=== PATIENT | male | born 1935 | race Hispanic/Latino ===

== ENCOUNTER 2018-11-15 13:54 | Observation (INO) | payer MEDICARE ==
[~2018-11-15] VITALS: Ht 170.2 cm; Wt 96.8 kg
[~2018-11-15 13:54] MED LIST: ATENOLOL25 MG PO; ATORVASTATIN CA40 MG PO; CLONAZEPAM1 MG PO; CYMBALTA60 MG PO; DONEPEZIL HCL5 MG PO; LEVAQUIN500 MG PO; LEVOTHYROXINE25 MCG PO; METRONIDAZOLE500 MG PO; OMEPRAZOLE40 MG PO; QUETIAPINE FUM100 MG PO
--- OUTSIDE RECORDS SUMMARY | 2018-11-15 13:58 | XMS REPORT ---
Author Author [facility] Address Unknown Phone Unavailable Care Team Providers Care Bisque Brusher Name Role Phone LOSALEIDA Odell AREVALO Unavailable Unavailable Magnolia GOMEZ Unavailable Unavailable Problems This patient has no known problems. Allergies, Adverse Reactions, Alerts This patient has no known allergies or adverse reactions. Medications This patient has no known medications. Results Test Description Test Time Test Comments Text Results Atomic Results Result Comments CHEST 2 VIEWS [place] [address] Patient Name: RYAN LANCASTER MR #: [id number] : 1935 Age/Sex: 81/M Req #: [id number] Adm Physician: Ordered by: SARY ELLIS Report #: [id number] Location: ER Room/Bed: Procedure: [id number] DX/CHEST 2 VIEWS Exam Date: 08/08/17 Exam Time: 1440 REPORT STATUS: Signed PROCEDURE: Frontal and lateral views of the chest. COMPARISON: [facility], CT, CT CHEST W, 07/19/2017, 19:15. INDICATIONS: DIZZY, HEADACHE, EAR PAIN FINDINGS: Lines/tubes: Unchanged left upper chest 2 -lead cardiac device Lungs: The lungs are well inflated and clear. There is no evidence of pneumonia or pulmonary edema. Pleura: There is no pleural effusion or pneumothorax. Heart and mediastinum: Borderline enlarged heart. Pulmonary vasculature is normal. Bones: No acute bony abnormality. IMPRESSION: 1. No acute cardiopulmonary abnormalities. Foreign Putnam M.D. Dictated by: Foreign Putnam M.D. on 08/08/2017 at 15:16 Electronically approved by: Foreign Putnam M.D. on 08/08/2017 at 15:16 Dictated By: FOREIGN PUTNAM MD 15 Transcribed By: EV on 08/08/171515 COPY TO: SARY ELLIS CT BRAIN WO [place] [address] Patient Name: RYAN LANCASTER MR #: [id number] : 1935 Age/Sex: 81/M Req #: [id number] Adm Physician: Ordered by: SARY ELLIS Report #: [id number] Location: ER Room/Bed: Procedure: [id number] CT/CT BRAIN WO Exam Date: 08/08/17 Exam Time: 1427 REPORT STATUS: Signed History:Ringing and dizziness since last night Comparison studies:None Technique: Axial images were obtained from the skull base to the vertex. Coronal and sagittal images reconstructed from the axial data. Intravenous contrast: None Findings: Scalp/skull: No abnormalities. Extra- axial spaces: No masses. No fluid collections. Brain sulci: Moderately prominent, more significant at the right frontal region. Possible right frontal pole hygroma with mild flattening of the adjacent sulci. Ventricles: Mild compensatory dilatation. No hydrocephalus. Parenchyma: Small hypodensities in the supratentorial white matter are small vessel ischemic changes. No masses, hemorrhage, acute or chronic cortical vascular insults. Sellar/suprasellar region: No abnormalities. Craniocervical junction: Patent foramen magnum. No Chiari one malformation. Incidental findings: Atherosclerotic calcifications in the carotid siphons . Impression: No acute abnormalities. Chronic findings: 1. Moderate generalized volume loss more significant at the right frontal region. 2. Mild supratentorial white matter small vessel ischemic changes. 3. Right frontal pole hygroma wi th mild flattening of the adjacent parenchyma Signed by: DR Long Jones M.D. on 08/08/2017 3:56 PM Dictated By: LONG ACOSTA MD 55 Transcribed By: SEAN on 08/08/171555 COPY TO: SARY ELLIS CT CHEST W [place] [address] Patient Name: RYAN LANCASTER MR #: [id number] : 1935 Age/Sex: 81/M Req #: [id number] Adm Physician: Ordered by: IRINA SOTO MD Report #: [id number] Location: ER Room/Bed: Procedure: [id number] CT/CT CHEST W Exam Date: 07/19/17 Exam Time: 1909 REPORT STATUS: Signed CT scan chest. July 19, 2017 Clinical history: Shortness of breath Technique: Pulmonary Embolism CT chest performed after 100 mL Isovue-370 intravenous contrast. No enteric contrast. Coronal, sagittal and axial images generated from source data. Dose: 566.49 mGy-cm Comparison: None Findings: Lungs: Clear. Airways: Normal for expiration phase imaging. Pleura: Normal Lymph nodes: Normal Pulmonary arteries: No filling defects. Main pulmonary artery diameter 2.8 cm. Thoracic aorta and great vessels: Normal caliber. Moderate atherosclerosis of the aortic arch and descending thoracic aorta. Mild atherosclerosis of the great vessels. Heart and pericardium: Upper limits of normal heart size. No pericardial effusion. Moderate atherosclerosis of the right coronary, left coronary, left anterior descending and circumflex arteries. Subdiaphragmatic organs: Diffuse low- attenuation of the liver. Otherwise, normal. Skeleton: Intact. Degenerative change of the sternomanubrial junction. Soft tissues: Normal. Impression: 1. No acute abnormality. Specifically, no evidence of pulmonary embolism. 2. Moderate aortic and coronary atherosclerosis. 3. Hepatic steatosis. This report was generated with voice-recognition technology. Errors in primary care coordinator can occur. Please interpret accordingly and contact a radiologist if there are any questions regarding the report. Signed by: Dr. Daniel Vu M.D. on 07/19/2017 7:42 PM Dictated By: DANIEL VU MD 41 Transcribed By: SEAN on 07/19/171941 COPY TO: IRINA SOTO MD CHEST SINGLE (PORTABLE) [place] [address] Patient Name: RYAN LANCASTER MR #: [id number] : 1935 Age/Sex: 81/M Req #: [id number] Adm Physician: Ordered by: IRINA SOTO MD Report #: [id number] Location: ER Room/Bed: Procedure: [id number] DX/CHEST SINGLE (PORTABLE) Exam Date: Exam Time: REPORT STATUS: Signed PROCEDURE: A single AP view of the chest. COMPARISON: [facility], , CHEST 2 VIEWS, 06/05/2017, 16:50. INDICATIONS: SHORTNESS OF BREATH, ABNORMAL EKG FINDINGS: Lines/tubes: None. Outside left- sided cardiac pacemaker. Lungs: The lungs are well inflated clear. There is no evidence of pneumonia or pulmonary edema. Pleura: There is no pleural effusion or pneumothorax. Heart and mediastinum: The cardiac silhouette is mildly enlarged. Bones: No acute bony abnormality. IMPRESSION: 1. Mild cardiomegaly. No acute decompensation. Perez Hernandez M.D. Dictated by: Perez Hernandez M.D. on 07/19/2017 at 17:00 Electronically approved by: Perez Hernandez M.D. on 07/19/2017 at 17:00 Dictated By: ADI HERNANDEZ MD, MD 99 Transcribed By: EV on 07/19/171699 COPY TO: IRINA SOTO MD ABDOMEN-1VIEW (KU) [place] [address] Patient Name: RYAN LANCASTER MR #: [id number] : 1935 Age/Sex: 81/M Req #: [id number] Adm Physician: CHASE GOMEZ MD Ordered by: CHASE GOMEZ MD Report #: [id number] Location: [facility] Room/Bed: [place] [address] Procedure: [id number] DX/ABDOMEN-1VIEW (KUB) Exam Date: 06/06/17 Exam Time: 1630 REPORT STATUS: Signed PROCEDURE: X-RAY ABDOMEN - KUB COMPARISON: [facility], DX, ABDOMEN-1VIEW (KUB), 06/04/2017, 18:04. INDICATIONS: INFLAMATION FOR TWO DAYS FINDINGS: There is a non-obstructed bowel-gas pattern. There are no calcifications projected over the renal shadows, expected course of the ureters or bladder. There are no acute osseous abnormalities. Multilevel degenerative changes of the lumbar spine. CONCLUSION: Nonobstructive bowel gas pattern. Perez Hernandez M.D. Dictated by: Perez Hernandez M.D. on 06/06/2017 at 18:08 Electronically approved by: Perez Hernandez M.D. on 06/06/2017 at 18:08 Dictated By: ADI HERNANDEZ MD, MD 07 Transcribed By: EV on 06/06/171807 COPY TO: CHASE GOMEZ MD CHEST 2 VIEWS [place] [address] Patient Name: RYAN LANCASTER MR #: [id number] : 1935 Age/Sex: 81/M Req #: [id number] Adm Physician: CHASE GOMEZ MD Ordered by: MISTY MANN MD Report #: [id number] Location: [facility] Room/Bed: [place] [address] Procedure: 21 DX/CHEST 2 VIEWS Exam Date: 06/05/17 Exam Time: 1700 REPORT STATUS: Signed PROCEDURE: X-RAY CHEST, TWO VIEWS COMPARISON: None. INDICATIONS: SHORTNESS OF BREATH FINDINGS: LUNGS: No consolidations or edema. PLEURA: No effusions or pneumothorax. HEART T MEDIASTINUM: The heart is prominent. There is a dual-lead cardiac device overlying the left chest. Calcification within the aorta. BONES T SOFT TISSUES: No acute findings. CONCLUSION: No acute thoracic abnormality. Jason Gifford D.O. Dictated by: Jason Gifford D.O. on 06/05/2017 at 17:53 Electronically approved by: Jason Gifford D.O. on 06/05/2017 at 17:53 Dictated By: JASON GIFFORD DO 52 Transcribed By: EV on 06/05/171752 COPY TO: MISTY MANN MD CT CHEST W [place] [address] Patient Name: RYAN LANCASTER MR #: [id number] : 1935 Age/Sex: 81/M Req #: [id number] Adm Physician: CHASE GOMEZ MD Ordered by: JALEEL SANCHEZ MD Report #: [id number] Location: [facility] Room/Bed: [place] [address] Procedure: [id number] CT/CT CHEST W Exam Date: 06/04/17 Exam Time: 1845 REPORT STATUS: Signed ADDENDUM #1 Point 2 under the impression section should read as follows: Moderate ATHEROSCLEROTIC disease of the thoracic aorta and branches including coronary arteries. Signed by: Dr. Misty Lund M.D. on 06/05/2017 9:48 AM ORIGINAL REPORT EXAM: CT Chest WITH contrast 06/04/2017 6:07 PM INDICATION: Pulmonary embolism COMPARISON: None TECHNIQUE: Chest was scanned utilizing a multidetector helical scanner from the lung apex through the level of the adrenal glands without administration of IV contrast. Coronal and sagittal reformations were obtained. Pulmonary embolism protocol was performed. IV CONTRAST: 100 mL of Isovue-370 RADIATION DOSE: Total DLP: 632.95 mGy*cm Estimated effective dose: (DLP x 0.014 x size factor) mSv COMPLICATIONS: None FINDINGS: LINES/ TUBES: Left-sided pacemaker with distal leads in the right atrium and right ventricle. NG tube is visualized in good position. LUNGS AND AIRWAYS: The lungs are unremarkable. Airways are normal. PLEURA: The pleural spaces are clear. HEART AND MEDIASTINUM: The thyroid gland is normal. No mediastinal, hilar or axillary lymphadenopathy. The heart is normal in size.. There is no pericardial effusion. There are moderate atherosclerotic calcifications in the aorta and coronary arteries. UPPER ABDOMEN: Diffuse hepatic steatosis. BONES: There are degenerative changes in the thoracic spine. SOFT TISSUES: Unremarkable. IMPRESSION: 1. No evidence of pulmonary embolism or other acute intrathoracic abnormality. 2. 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 3. Diffuse hepatic steatosis Signed by: Dr. Jonas Sage M.D. on 06/04/2017 8:28 PM Dictated By: JONAS FAITH MD 7 Transcribed By: SEAN on 06/04/172027 COPY TO: JALEEL SANCHEZ MD ABDOMEN-1[facility] ([place] [address] Patient Name: RYAN LANCASTER MR #: [id number] : 1935 Age/Sex: 81/M Req #: [id number] Adm Physician: CHASE GOMEZ MD Ordered by: ISAAC RUTHERFORD MD Report #: [id number] Location: [facility] Room/Bed: IMCU 198-1 Procedure: 36 DX/ABDOMEN-1VIEW (KUB) Exam Date: 06/04/17 Exam Time: 181 REPORT STATUS: Signed Abdomen/KUB Tube Placement CPT CODE: 84100 INDICATION: Tube Placement. COMPARISON: None. FINDINGS: Portable, supine image obtained at 1804 hours. Enteric tube is located in the distal stomach. The bowel gas pattern is unremarkable. IMPRESSION: As above. Signed by: Dr. Lacie Bellamy MD on 06/04/2017 6:51 PM Dictated By: LACIE BELLAMY MD 50 Transcribed By: SEAN on 06/04/171850 COPY TO: ISAAC RUTHERFORD MD CHEST SINGLE (PORTABLE) [place] [address] Patient Name: RYAN LANCASTER MR #: [id number] : 1935 Age/Sex: 81/M Req #: [id number] Adm Physician: CHASE GOMEZ MD Ordered by: JALEEL SANCHEZ MD Report #: [id number] Location: [facility] Room/Bed: [facility] 198- Procedure: 0019 DX/CHEST SINGLE (PORTABLE) Exam Date: 06/04/17 Exam Time: 0730 REPORT STATUS: Signed Portable chest x-ray INDICATION: Wheezing COMPARISON: Chest x-rays 06/02/2017 and 06/03/2017 FINDINGS: Frontal view of the chest obtained at 0740 hours. The cardiac silhouette is enlarged and stable in morphology. Dual lead pacemaker terminates in the right atrium and right ventricle without pneumothorax. Multiple EKG leads overlie the chest. The pulmonary vascular markings are normal. The lungs demonstrate diffuse hyperinflation. The costophrenic angles are sharp. There is no pneumothorax. The osseous structures are stable. IMPRESSION: 1. Stable cardiomegaly with pacemaker as described above. 2. COPD. No acute pulmonary process. Signed by: Dr. Lacie Bellamy MD on 06/04/2017 5:47 PM Dictated By: LACIE BELLAMY MD 46 Transcribed By: SEAN on 06/04/171746 COPY TO: JALEEL SANCHEZ MD CHEST SINGLE (PORTABLE) [place] [address] Patient Name: RYAN LANCASTER MR #: [id number] : 1935 Age/Sex: 81/M Req #: [id number] Adm Physician: JALEEL SANCHEZ MD Ordered by: LIDIA ROSAS MD Report #: [id number] Location: [facility] Room/Bed: [place] [address] Procedure: [id number] DX/CHEST SINGLE (PORTABLE) Exam Date: 06/03/17 Exam Time: 0445 REPORT STATUS: Signed EXAMINATION: CHEST SINGLE (PORTABLE) INDICATION: Pacemaker placement. COMPARISON: 06/02/2017 FINDINGS: TUBES and LINES: The pacemaker is intact. The distal leads overlie the right atrium and right ventricle. LUNGS: Lungs are not well inflated. There are bibasilar atelectasis. There is mild prominence of the central pulmonary vasculature, consistent with pulmonary venous congestion. PLEURA: No pleural effusion or pneumothorax. HEART AND MEDIASTINUM: The cardiomediastinal silhouette is unremarkable. BONES AND SOFT TISSUES: No acute osseous lesion. Soft tissues are unremarkable. UPPER ABDOMEN: No free air under the diaphragm. IMPRESSION: 1. No acute thoracic abnormality. 2. Good position of left pacemaker distal leads. Signed by: Dr. Jonas Sage M.D. on 06/03/2017 6:29 AM Dictated By: JONAS FAITH MD 8 Transcribed By: SEAN on 06/03/17628 COPY TO: LIDIA ROSAS MD CHEST SINGLE (PORTABLE) [place] [address] Patient Name: RYAN LANCASTER MR #: [id number] : 1935 Age/Sex: 81/M Req #: [id number] Adm Physician: Ordered by: DAXA JOHNSON MD Report #: [id number] Location: ER Room/Bed: Procedure: [id number] DX/CHEST SINGLE (PORTABLE) Exam Date: 06/02/17 Exam Time: 1445 REPORT STATUS: Signed PROCEDURE: A single AP view of the chest. COMPARISON: None. INDICATIONS: SHORTNESS OF BREATH FINDINGS: See impression. IMPRESSION: 1. minimal linear subsegmental atelectasis in the left lower lung. No consolidation or effusion. 2. Enlarged cardiac silhouette. Central pulmonary vasculature is normal. 3. No acute bony abnormalities. Foreign Putnam M.D. Dictated by: Foreign Putnam M.D. on 06/02/2017 at 15:12 Electronically approved by: Foreign Putnam M.D. on 06/02/2017 at 15:12 Dictated By: FOREIGN PUTNAM MD 11 Transcribed By: EV on 06/02/171511 COPY TO: DAXA JOHNSON MD CT ABDOMEN/PELVIS W [place] [address] Patient Name: RYNA LANCASTER MR #: [id number] : 1935 Age/Sex: 81/M Req #: [id number] Adm Physician: Ordered by: DAXA JOHNSON MD Report #: [id number] Location: ER Room/Bed: Procedure: [id number] CT/CT ABDOMEN/PELVIS W Exam Date: 06/02/17 Exam Time: 1614 REPORT STATUS: Signed PROCEDURE: CT ABDOMEN AND PELVIS WITH CONTRAST TECHNIQUE: The abdomen and pelvis were scanned utilizing a multidetector helical scanner from the diaphragm to the lesser trochanter after the IV administration of 100 cc of Isovue 370 and the oral administration of water. Coronal and sagittal multiplanar reformations were obtained. COMPARISON: None. INDICATIONS: ABDOMINAL PAIN FINDINGS: LOWER THORAX: Linear subsegmental atelectasis versus scarring in the lingula. Pleural thickening in the posterior lower lobes, bilaterally. Mild cardiomegaly. HEPATOBILIARY: Marked diffuse hepatic steatosis. No focal lesions. No biliary ductal dilation. Gallbladder is unremarkable. SPLEEN: No splenomegaly. PANCREAS: No focal masses or ductal dilatation. ADRENALS: No adrenal nodules. KIDNEYS/URETERS: No hydronephrosis, stones, or solid mass lesions. PELVIC ORGANS/BLADDER: Bladder is unremarkable. Dystrophic calcifications in the prostate. Prostate measures approximately 4.4 x 3.9 x 6.3 cm (estimated volume 29 cc). PERITONEUM / RETROPERITONEUM: No free air or fluid. LYMPH NODES: No lymphadenopathy. VESSELS: Celiac trunk, superior and inferior mesenteric, and bilateral renal arteries are patent. Portal, superior mesenteric, and splenic veins are patent. Atherosclerotic calcification as well as soft plaque in the abdominal aorta and proximal iliac vessels. The largest plaque is located in the infrarenal abdominal aorta (series 2 image 30), with approximately 25% luminal reduction. GI TRACT: No bowel dilation or evidence of obstruction. No pericolonic inflammatory changes. Appendix is well identified and normal in caliber. Descending and sigmoid colon diverticulosis, without diverticulitis. Stomach is unremarkable. BONES AND SOFT TISSUES: No acute bony abnormalities. Multilevel degenerative disc changes in the lower thoracic and lumbosacral spine, worse at L5-S1. IMPRESSION: 1. No acute abdominopelvic abnormalities. No evidence of bowel obstruction or dilation. 2. Marked diffuse hepatic steatosis. No focal lesions. 3. Mild cardiomegaly. Foreign Putnam M.D. Dictated by: Foreign Putnam M.D. on 06/02/2017 at 17:20 Electronically approved by: Foreign Putnam M.D. on 06/02/2017 at 17:20 Dictated By: FOREIGN PUTNAM MD 1720 Transcribed By: EV on 06/02/17 1720 COPY TO: DAXA JOHNSON MD
[2018-11-15] MEDS ORDERED: SODIUM CHLORIDE 0.9% 1000ML 1,000 ML IV STA (14:18)
--- NOTE | 2018-11-15 14:23 | NUR ---
PATIENT TO ROOM 5
[2018-11-15] MEDS ORDERED: CEFEPIME 1GM/NS 0.9% 50 ML 50 ML IV ONE (14:30)
--- NOTE | 2018-11-15 14:50 | Diagnostic Imaging Report ---
Examination: Single AP view of the chest. COMPARISON: 08/08/2017 INDICATION: Chills, sweats, dyspnea DISCUSSION: The lungs are well-inflated. No focal consolidation, pleural effusion, or pneumothorax. Cardiomediastinal contour is stable when accounting for differences in technique. Left subclavian approach implantable cardiac device body and leads are unchanged in position. No overt pulmonary edema. No acute osseous abnormality. IMPRESSION: Borderline enlargement of the cardiac silhouette without vascular decompensation. Signed by: Dr. Jeremías Lund M.D. on 11/15/2018 2:46 PM
--- NOTE | 2018-11-15 15:08 | NUR ---
PATIENT AMBULATED TO BATHROOM, CAME BACK. PLACED ON MONITOR. SHOWING WIDE COMPLEX TACHY. DR. MONROY AT BEDSIDE EVALUATING PATIENT. PLACED ON PACER PADS. SHE IS SPEAKING WITH DR. ROSAS REGARDING PLAN OF CARE
[2018-11-15 15:25] LABS: BASOPHILS % 0.3 % (0.0-1.0); EOSINOPHILS % 0.1 % (0.0-6.0); HEMATOCRIT 43.7 % (38.2-49.6); HEMOGLOBIN 15.3 g/dL (14.0-18.0); LYMPHOCYTES # (AUTO) 1.1 (1.0-3.2); LYMPHOCYTES % 7.3 % (18.0-39.1); MEAN CORPUSCULAR VOLUME 94.2 fL (81-99); MONOCYTES # (AUTO) 1.9 (0.2-0.8); MONOCYTES % 13.1 % (4.4-11.3); NEUTROPHILS # (AUTO) 11.6 (2.1-6.9); NEUTROPHILS % 78.7 % (38.7-80.0); PLATELET COUNT 184 x10e3/uL (140-360); RED BLOOD COUNT 4.64 x10e6/uL (4.3-5.7)
[2018-11-15 15:41] LABS: BILIRUBIN,URINE 1+ (NEGATIVE); CLARITY,URINE SL CLOUDY (CLEAR); COLOR,URINE YELLOW (YELLOW); KETONES,URINE TRACE (NEGATIVE); LEUKOCYTE ESTERASE ,URINE NEGATIVE (NEGATIVE); NITRITE,URINE NEGATIVE (NEGATIVE); PROTEIN,URINE DIPSTICK 2+ (NEGATIVE); URINE UROBILINOGEN 0.2 mg/dL (0.2 - 1)
[2018-11-15 15:46] LABS: AMORPHOUS SEDIMENT,URINE FEW (FEW); BACTERIA,URINE MANY /HPF; CALCIUM OXALATE CRYSTALS,UR FEW (FEW); EPITHELIAL CELLS,URINE FEW /LPF; HYALINE CASTS 0-1 (0-1); URIC ACID CRYSTALS,URINE FEW (FEW)
[2018-11-15 15:57] LABS: ALBUMIN 3.9 g/dL (3.5-5.0); ANION GAP 12.1 mmol/L (8-16); CALCIUM 8.7 mg/dL (8.4-10.2); CREATININE, SERUM 1.62 mg/dL (0.72-1.25); POTASSIUM 4.1 mmol/L (3.5-5.1)
[2018-11-15] MEDS: SODIUM CHLORIDE 0.9% 1000ML 1,000 ML IV SCH (15:59)
--- NOTE | 2018-11-15 17:58 | Diagnostic Imaging Report ---
EXAM: CT Chest WITH contrast (PE Protocol) INDICATION: Shortness of breath. COMPARISON: None TECHNIQUE: Chest was scanned utilizing a multidetector helical scanner from the lung apex through the level of the diaphragm after administration of IV contrast. Thin section reconstructions were obtained with special concentration on the pulmonary arteries. Coronal and sagittal reformations were obtained. Pulmonary embolism protocol was performed. IV CONTRAST: 100 mL of Isovue 370 COMPLICATIONS: None RADIATION DOSE: Total DLP: 1390.73 mGy*cm for a combined chest and abdomen pelvis Estimated effective dose: (DLP x 0.014 x size factor) mSv CTDIvol has been reviewed. It is below the limits set by the Radiation Protocol Committee (RPC). FINDINGS: LINES/ TUBES: Left-sided pacemaker with 2 intact wires. LUNGS AND AIRWAYS: No filling defect is identified within the pulmonary arteries to the segmental level. Mild air trapping seen with exam performed on expiratory view. Dependent atelectasis. Airways are normal. PLEURA: The pleural spaces are clear. HEART AND MEDIASTINUM: The thyroid gland is normal. No mediastinal, hilar or axillary lymphadenopathy. The heart is normal in size. There is no pericardial effusion. There are significant atherosclerotic calcifications in the aorta and coronary arteries.. Main pulmonary artery measures 2.8 cm in diameter and the ascending aorta measures 3.5 cm. UPPER ABDOMEN: Please see CT abdomen and pelvis for further discussion. BONES: The visualized bony thorax is within normal limits. SOFT TISSUES: Lipomatosis surrounding the aorta The diaphragm with small slightly more prominent than expected lymph nodes. IMPRESSION: 1. No pulmonary emboli. 2. Mild air trapping seen. Signed by: Dr. Jim Whatley M.D. on 11/15/2018 5:55 PM
--- NOTE | 2018-11-15 18:06 | Diagnostic Imaging Report ---
EXAM: CT Abdomen and Pelvis WITH contrast INDICATION: Diarrhea. COMPARISON: None. TECHNIQUE: Abdomen and pelvis were scanned utilizing a multidetector helical scanner from the lung base to the pubic symphysis after administration of IV contrast. Coronal and sagittal reformations were obtained. Routine protocol was performed. Scan was performed when during portal venous phase. IV CONTRAST: 100 mL of Isovue 370 ORAL CONTRAST: Water COMPLICATIONS: None RADIATION DOSE: Total DLP: 1390.73 mGy*cm for combined CT chest and CT abdomen and pelvis Estimated effective dose: (DLP x 0.015 x size factor) mSv CTDIvol has been reviewed. It is below the limits set by the Radiation Protocol Committee (RPC). FINDINGS: LINES and TUBES: None. LOWER THORAX: Unremarkable HEPATOBILIARY: The liver is diffuse hypodense compared to the spleen, consistent with diffuse hepatic diffuse hepatic steatosis. 17.7 cm in craniocaudal dimension at mid clavicular line. No focal hepatic lesions. No biliary ductal dilation. GALLBLADDER: No radio-opaque stones or sludge. No wall thickening. SPLEEN: No splenomegaly. PANCREAS: No focal masses or ductal dilatation. ADRENALS: No adrenal nodules KIDNEYS/URETERS: Kidneys enhance symmetrically. No hydronephrosis. No cystic or solid mass lesions. No stones. GI TRACT: Diffuse jejunal distention measuring 3.2 cm with wall enhancement and thickening and dilated vasa recta. No associated lymphadenopathy. Ileum is normal. There are diverticula within the colon without evidence of diverticulitis. Appendix is normal. PELVIC ORGANS/BLADDER: Prostate measures 4.4 cm in transverse dimension with coarse dystrophic calcifications. LYMPH NODES: No lymphadenopathy. VESSELS: There is severe atherosclerotic disease in the aorta and major arterial branches. PERITONEUM / RETROPERITONEUM: No free air or fluid. BONES: There are degenerative changes in the lumbar spine. SOFT TISSUES: There are bilateral fat containing inguinal hernias. IMPRESSION: 1. Diffuse enteritis involving the jejunum. No evidence of bowel obstruction. 2. Hepatomegaly and diffuse hepatic steatosis. Signed by: Dr. Jim Whatley M.D. on 11/15/2018 6:03 PM
[2018-11-15] MEDS ORDERED: ASPIRIN 81 MG CHEW TAB PO ONE (18:30)
[2018-11-15] MEDS ORDERED: CIPROFLOXACIN 400 MG/D5W 200ML 200 ML IV ONE ×2 (18:45→21:00)
[2018-11-15] MEDS ORDERED: METRONIDAZOLE 500MG/NS 100ML 100 ML IV ONE (18:45)
[2018-11-15 18:48] LABS: LYMPHOCYTES % (MANUAL) 7 % (19-48); MONOCYTES % (MANUAL) 10 % (3.4-9.0); NEUTROPHILS % (MANUAL) 76 % (40-74); PLATELET ESTIMATE ADEQUATE; PLATELET MORPHOLOGY COMMENT FEW LARGE; RBC MORPHOLOGY COMMENT NORMAL
[2018-11-15] MEDS ORDERED: LOSARTAN PO (18:59)
[2018-11-15] MEDS ORDERED: ASPIR 8181 MG PO (18:59)
[2018-11-15] MEDS ORDERED: LIPO-FLAVONOID1 EACH PO (18:59)
[2018-11-15] MEDS ORDERED: CENTRUM SILVER1 EAC3 PO (18:59)
[2018-11-15 20:25] VITALS: BP 139/63
--- NOTE | 2018-11-15 20:25 | NUR ---
Received report from Kelle, ER nurse. Patient is in no pain or distress. Came to the unit on a stretcher. Family at bedside. Chinese speaking. Call light within reach.
[2018-11-15 22:10] VITALS: BP 139/63
[2018-11-15] MEDS ORDERED: SODIUM CHLORIDE 0.9% 50ML 50 ML ONE (22:24)
[2018-11-15] MEDS ORDERED: IOPAMIDOL 370 MG/ML 200 ML INFUS..BTL INJ ONE (22:24)
[2018-11-16] VITALS (10 sets, daily range): BP systolic 132–187; BP diastolic 58–87
[2018-11-16] MEDS: SODIUM CHLORIDE 0.9% 1000ML 1,000 ML IV SCH ×3 (02:00→21:07)
--- NOTE | 2018-11-16 03:36 | NUR ---
Call light within reach. No pain or distress. Patient asleep in bed.
[2018-11-16 03:51] LABS: CREATINE KINASE MB 1.7 ng/mL (0-5.0)
[2018-11-16 04:35] LABS: CHOL/HDL RATIO 2.7 (3.9-4.7)
--- NOTE | 2018-11-16 07:11 | NUR ---
History and PHysical cc; diarrhea and SOB HPI; 83yoM, PCP , developed diarrhea and SOB for past 2 days; no fever, some chills; no N/V. no abdominal pain or dysuria. 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, HTN, DEMENTIA, HLD, GERD, hypothyroidism, obesity, PSHx; PPM, cataract Allergies; see emr Fh/SH; wodowed; no cigs/illicts Med;s see MAR ROS: no f//N/V/ROSARIO/vision changes/leg pain/back pain/abdominal pain/skin rash V/s; Rev'd PE: tired appearing anicteric ns1s2 mod bs soft nt nd no e/t skin dry PPM palpable left chest wall flat affect labs/meds; rev'd A/P: 83yoM Diarrhea UTI Sahra Hyponatremia Dehydration HTN HLD GERD Dementia Acute transaminitis hypothyroidism obesity BMI 31.3 Pre PLAN iv flagyl/ceftriaxone fluids hab1c/lipids CT no significant disease PT consult lovenox/pepcid dispo: f/u labs; f/u C.diff; d/w daughter at bedside. Donn Urena MD, PhD.
--- NOTE | 2018-11-16 07:36 | NUR ---
REPORT GIVEN TO ONCOMING NURSE. CALL LIGHT WITHIN REACH.
[2018-11-16] MEDS: PANTOPRAZOLE SOD 40 MG TABEC PO SCH (08:47)
[2018-11-16] MEDS: LEVOTHYROXINE SODIUM 25 MCG TABLET PO SCH (08:47)
[2018-11-16] MEDS: METRONIDAZOLE 500MG/NS 100ML 100 ML IV SCH ×3 (08:47→21:07)
[2018-11-16] MEDS: LEVOFLOXACIN 500MG/D5W 100ML 100 ML IV SCH (08:48)
[2018-11-16] MEDS: DULOXETINE HCL 30 MG DELAYED RELEASE PO SCH (08:48)
[2018-11-16] MEDS: CALCIUM CARBONATE 500 MG CHEWABLE TABS PO SCH ×3 (08:48→21:07)
[2018-11-16] MEDS: ASPIRIN 81 MG CHEW TAB PO SCH (08:48)
[2018-11-16] MEDS ORDERED: NON-FORMULARY MEDICATION (Atorvastatin Calcium 40 MG) PO SCH (09:00)
[2018-11-16] MEDS ORDERED: NON-FORMULARY MEDICATION (Duloxetine Hcl (Cymbalta) 60 MG) PO SCH (09:00)
[2018-11-16 11:43] LABS: CREATINE KINASE MB 1.9 ng/mL (0-5.0)
[2018-11-16] MEDS ORDERED: AMIODARONE HCL INJ 150MG/3ML ONE (15:02)
[2018-11-16] MEDS ORDERED: SODIUM CHLORIDE 0.9% 1000 ML BAG ONE (15:02)
[2018-11-16] MEDS ORDERED: NEXTERONE IV 150MG/100ML PREMIX BAG ONE (15:02)
--- NOTE | 2018-11-16 16:57 | NUR ---
pt and family report sob on amb to bathroom. per tele HR goes from resting @95 bpm to 118-130 when amb. pt reports he initially came in with CP and SOB, family requesting pacemaker interrogation. upset about cardio consult being cancelled this morning. per MD, ok to establish new cardio consult and have interrogation. pt currently stable.
[2018-11-16] MEDS: ENOXAPARIN SOD INJ 40 MG/0.4 ML SYR SC SCH (17:32)
[2018-11-16] MEDS: QUETIAPINE FUMARATE 100 MG TAB PO SCH (21:07)
[2018-11-16] MEDS: ATORVASTATIN 40 MG TAB PO SCH (21:07)
--- NOTE | 2018-11-16 22:18 | NUR ---
Cardiology Consult Dictation #[id number]
[2018-11-17] VITALS (8 sets, daily range): BP systolic 134–179; BP diastolic 63–89
[2018-11-17] MEDS: LEVOTHYROXINE SODIUM 25 MCG TABLET PO SCH (05:19)
[2018-11-17] MEDS: METRONIDAZOLE 500MG/NS 100ML 100 ML IV SCH ×3 (05:19→21:00)
[2018-11-17 06:01] LABS: BASOPHILS % 0.4 % (0.0-1.0); EOSINOPHILS % 0.6 % (0.0-6.0); HEMATOCRIT 36.2 % (38.2-49.6); HEMOGLOBIN 12.5 g/dL (14.0-18.0); LYMPHOCYTES # (AUTO) 1.9 (1.0-3.2); LYMPHOCYTES % 27.7 % (18.0-39.1); MEAN CORPUSCULAR HEMOGLOBIN 32.6 pg (28-32); MEAN CORPUSCULAR HGB CONC 34.5 g/dL (31-35); MEAN CORPUSCULAR VOLUME 94.5 fL (81-99); MONOCYTES % 14.1 % (4.4-11.3); NEUTROPHILS # (AUTO) 3.8 (2.1-6.9); NEUTROPHILS % 56.6 % (38.7-80.0); PLATELET COUNT 148 x10e3/uL (140-360); RED BLOOD COUNT 3.83 x10e6/uL (4.3-5.7); RED CELL DISTRIBUTION WIDTH 13.3 % (11.7-14.4)
[2018-11-17 06:28] LABS: ANION GAP 11.4 mmol/L (8-16); BLOOD UREA NITROGEN 14 mg/dL (7-26); BUN/CREATININE RATIO 18 (6-25); CALCIUM 7.8 mg/dL (8.4-10.2); CARBON DIOXIDE 21 mmol/L (22-29); CHLORIDE 110 mmol/L (98-107); CREATININE, SERUM 0.76 mg/dL (0.72-1.25); EST GLOMERULAR FILTRATION RATE > 60 ML/MIN (60-); GLUCOSE 118 mg/dL (74-118); POTASSIUM 3.4 mmol/L (3.5-5.1); SODIUM 139 mmol/L (136-145)
--- NOTE | 2018-11-17 07:32 | NUR ---
pt resting in bed, family at bedside. per family, pacemaker interrogation done and were told no complications. pt to have echo today. will continue to monitor.
--- NOTE | 2018-11-17 08:46 | Consultation ---
DATE OF CONSULTATION: 11/16/2018 Cardiology Consultation REASON FOR CONSULTATION: Shortness of breath and permanent pacemaker interrogation. 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 The patient reports chronic abdominal discomfort for the last few years that has been worse in the last week. In addition, he has had dyspnea on exertion at approximately 100 feet, which worsened yesterday. He therefore presented to the ER for further evaluation. The patient reports he has had increasing abdominal distention and diarrhea, which has been ongoing since Monday. He denies any chest pain, palpitations, or edema. He does endorse chills, but no fever and has not noted any GI bleeding. REVIEW OF SYSTEMS: Negative as per HPI. PAST MEDICAL HISTORY: 1. Complete heart block, status post permanent pacemaker. 2. Hypertension. 3. Hyperlipidemia. 4. Hypothyroidism. 5. Dementia. PAST SURGICAL HISTORY: Cataract surgery. ALLERGIES: PLEASE SEE EMR. MEDICATIONS: Please see medication list. SOCIAL HISTORY: He endorses a remote history of tobacco use. No illicit drugs, but does drink a 6-pack of beer daily. FAMILY HISTORY: Noncontributory to current illness. PHYSICAL EXAMINATION: VITAL SIGNS: Temperature 98 degrees, pulse 102, respiratory rate 20, blood pressure 177/81, oxygen sat 95% on room air. GENERAL: An elderly man, in no acute distress. HEENT: Normocephalic, atraumatic. Pupils are equal, no scleral icterus. NECK: Supple. No thyromegaly or cervical lymphadenopathy. No carotid bruits. LUNGS: Clear to auscultation bilaterally. No wheezes or crackles. CARDIOVASCULAR: Normal rate, regular rhythm. No murmur. Normal S1, S2. ABDOMEN: Soft, distended, mildly tender to palpation. EXTREMITIES: No edema. NEUROLOGIC: Nonfocal exam. LABORATORY DATA: WBC 14.71, hemoglobin 15.3, hematocrit 43.7, platelets 184. Sodium 130, potassium 4.1, chloride 101, CO2 of 21, BUN 17, creatinine 1.62, lactate 32.5. Troponin 0.030. Cholesterol was 99, triglycerides were 97, LDL 43, HDL 37. CT chest, no pulmonary emboli, mild air trapping seen. CT abdomen and pelvis, diffuse enteritis involving the jejunum. No evidence of bowel obstruction. Hepatomegaly and diffuse hepatic steatosis. EKG, [employer] ventricular pacemaker. IMPRESSION: 1. Dyspnea. 2. Diarrhea. 3. Abdominal distension. 4. Acute kidney injury. 5. Enterococcus urinary tract infection. 6. Hyponatremia. 7. Hypertension. 8. Hyperlipidemia. 9. Hypothyroidism. 10. Dementia, elevated LFTs. RECOMMENDATIONS: We will obtain echocardiogram to evaluate the patient's dyspnea. Review of EKG demonstrates V-paced rhythm. We will have the patient's pacemaker interrogated. Antibiotics per primary service. Further evaluation of the patient's abdominal pain and diarrhea per primary. Agree with fluid challenge. Monitor volume status closely. Keep the patient on telemetry while admitted. Thank you for this consult. We will continue to follow. Anneliese Fink MD ABS/MODL /[id number]
[2018-11-17] MEDS: CALCIUM CARBONATE 500 MG CHEWABLE TABS PO SCH ×3 (09:07→20:20)
[2018-11-17] MEDS: LEVOFLOXACIN 500MG/D5W 100ML 100 ML IV SCH (09:07)
[2018-11-17] MEDS: PANTOPRAZOLE SOD 40 MG TABEC PO SCH (09:07)
[2018-11-17] MEDS: ASPIRIN 81 MG CHEW TAB PO SCH (09:07)
[2018-11-17] MEDS: DULOXETINE HCL 30 MG DELAYED RELEASE PO SCH (09:07)
[2018-11-17] MEDS: SODIUM CHLORIDE 0.9% 1000ML 1,000 ML IV SCH ×3 (09:45→20:20)
--- NOTE | 2018-11-17 10:51 | NUR ---
IM- Progress note O/N; no events ROS: no f//N/V/ROSARIO/vision changes/leg pain/back pain/abdominal pain/skin rash V/s; Rev'd PE: tired appearing anicteric ns1s2 mod bs soft nt nd no e/t skin dry PPM palpable left chest wall flat affect labs/meds; rev'd A/P: 83yoM Diarrhea UTI Sahra Hyponatremia Dehydration HTN HLD GERD Dementia Acute transaminitis hypothyroidism obesity BMI 31.3 Pre PLAN iv flagyl/ceftriaxone fluids hab1c/lipids CT no significant disease PT consult lovenox/pepcid dispo: f/u labs; f/u C.diff; d/w daughter at bedside. 11/17 leukocytosis resolved; PPM interrogation? Hba1c 6.1, LDL 43. Pt has PreDM. Donn Urena MD, PhD.
--- NOTE | 2018-11-17 13:34 | NUR ---
SOCIAL WORK INITIAL ASSESSMENT Sales And Service Engineer to bedside to discuss plan of care with patient/family. CM/SW role and care transitions discussed. Anticipated discharge plan discussed along with duration of care. CM/SW discussed patients right to make decisions in care. CM/SW work hours given. Patient lives: IN HOUSE WITH DAUGHTER Admit/Transfer: VIA ED POA/Emergency contact: MARTIN WHITTAKER [phone] Current/Previous Home Health: NONE PCP/Follow-up Care: MARY Current/Previous DME: NONE Other Services: NONE Employment Status: RETIRED Areas of Concerns: NONE Referral Needs: NONE Education Needs: NONE IMM/EATON given and signed (if applicable): EATON Goal for discharge: RETURN HOME CM/SW left business card at the bedside with contact information. Name and number was also written on the patients whiteboard. Patient verbalized understanding of discussion. CM will follow-up with ongoing discharge and transition of care needs.
--- NOTE | 2018-11-17 14:47 | Progress Note ---
DATE: 11/17/2018 Cardiology Progress Note SUBJECTIVE: The patient is feeling better. Shortness of breath improved. No abdominal pain. OBJECTIVE: VITAL SIGNS: Temperature is 96.7, heart rate is 80, respirations are 18, blood pressure is 154/68, and oxygen saturation is 96% on room air. GENERAL: He is an elderly-appearing male, lying comfortably in bed, in no apparent distress. CARDIOVASCULAR: Regular rate and rhythm. LUNGS: Clear to auscultation. ABDOMEN: Soft and nontender. EXTREMITIES: Trace edema. LABORATORY DATA: Reviewed. Hemoglobin 12.5, creatinine 0.76. Troponins were negative x3. Telemetry monitoring revealed ventricular paced rhythm. Cardiovascular medications reviewed. IMPRESSION: 1. Shortness of breath. 2. Diarrhea. 3. Abdominal pain. 4. Chronic kidney disease. 5. Urinary tract infection. 6. Dementia. RECOMMENDATIONS: Preliminary echocardiogram showed mildly depressed left ventricular systolic function. Telemetry monitoring revealed ventricular paced rhythm. We will have the pacemaker interrogated. Continue all other current treatment for his infection and diarrhea per primary team. We will continue to follow closely. DO JEFFERSON Salazar/MODL /[id number]
[2018-11-17] MEDS ORDERED: HYDRALAZINE HCL 20 MG/ML VIAL IV PRN (17:00)
--- NOTE | 2018-11-17 17:02 | NUR ---
md and cardio aware of bp trending up, new orders recvd
[2018-11-17] MEDS: AMLODIPINE BESYLATE 5 MG TAB PO SCH (17:11)
[2018-11-17] MEDS: ENOXAPARIN SOD INJ 40 MG/0.4 ML SYR SC SCH (17:11)
[2018-11-17] MEDS: ATORVASTATIN 40 MG TAB PO SCH (20:20)
[2018-11-17] MEDS: QUETIAPINE FUMARATE 100 MG TAB PO SCH (20:20)
[2018-11-18 00:45] VITALS: BP 156/69
[2018-11-18 04:15] VITALS: BP 161/76
[2018-11-18] MEDS: METRONIDAZOLE 500MG/NS 100ML 100 ML IV SCH ×2 (05:23→14:11)
[2018-11-18] MEDS: LEVOTHYROXINE SODIUM 25 MCG TABLET PO SCH (05:23)
[2018-11-18 05:34] LABS: BASOPHILS % 0.5 % (0.0-1.0); EOSINOPHILS # (AUTO) 0.2 (0.0-0.4); EOSINOPHILS % 3.1 % (0.0-6.0); HEMATOCRIT 34.9 % (38.2-49.6); LYMPHOCYTES # (AUTO) 2.1 (1.0-3.2); LYMPHOCYTES % 37.2 % (18.0-39.1); MEAN CORPUSCULAR HEMOGLOBIN 32.9 pg (28-32); MEAN CORPUSCULAR HGB CONC 34.4 g/dL (31-35); MEAN CORPUSCULAR VOLUME 95.6 fL (81-99); MONOCYTES # (AUTO) 0.5 (0.2-0.8); MONOCYTES % 9.7 % (4.4-11.3); NEUTROPHILS # (AUTO) 2.7 (2.1-6.9); NEUTROPHILS % 48.8 % (38.7-80.0); PLATELET COUNT 151 x10e3/uL (140-360); RED BLOOD COUNT 3.65 x10e6/uL (4.3-5.7); RED CELL DISTRIBUTION WIDTH 13.3 % (11.7-14.4)
[2018-11-18] MEDS: PANTOPRAZOLE SOD 40 MG TABEC PO SCH (07:27)
[2018-11-18] MEDS: LEVOFLOXACIN 500MG/D5W 100ML 100 ML IV SCH (07:27)
[2018-11-18 08:20] VITALS: BP 167/75
[2018-11-18] MEDS ORDERED: METOPROLOL TART25 MG PO (09:09)
[2018-11-18] MEDS: DULOXETINE HCL 30 MG DELAYED RELEASE PO SCH (09:17)
[2018-11-18] MEDS: CALCIUM CARBONATE 500 MG CHEWABLE TABS PO SCH ×2 (09:17→15:29)
[2018-11-18] MEDS: ASPIRIN 81 MG CHEW TAB PO SCH (09:17)
[2018-11-18] MEDS: AMLODIPINE BESYLATE 5 MG TAB PO SCH (09:17)
[2018-11-18 09:24] LABS: ANION GAP 10.3 mmol/L (8-16); BLOOD UREA NITROGEN 11 mg/dL (7-26); BUN/CREATININE RATIO 15 (6-25); CALCIUM 7.7 mg/dL (8.4-10.2); CARBON DIOXIDE 22 mmol/L (22-29); CHLORIDE 112 mmol/L (98-107); CREATININE, SERUM 0.72 mg/dL (0.72-1.25); EST GLOMERULAR FILTRATION RATE > 60 ML/MIN (60-); GLUCOSE 99 mg/dL (74-118); POTASSIUM 3.3 mmol/L (3.5-5.1); SODIUM 141 mmol/L (136-145)
--- NOTE | 2018-11-18 12:28 | NUR ---
DIscharge summary: A/P: 83yoM Diarrhea UTI Sahra Hyponatremia Dehydration HTN HLD GERD Dementia Acute transaminitis hypothyroidism obesity BMI 31.3 Pre PLAN iv flagyl/ceftriaxone fluids hab1c/lipids CT no significant disease PT consult lovenox/pepcid dispo: f/u labs; f/u C.diff; d/w daughter at bedside. 11/17 leukocytosis resolved; PPM interrogation? Hba1c 6.1, LDL 43. Pt has PreDM. 11/18 Enterococcus faecalis UTI- on levaquin; f/u 1 week and 2 weeks Stable d/c >35mins d/c home Donn Urena MD, PhD.
[2018-11-18 12:49] VITALS: BP 167/77
[2018-11-18] MEDS: SODIUM CHLORIDE 0.9% 1000ML 1,000 ML IV SCH (14:11)
[2018-11-18 14:57] VITALS: BP 167/77
[2018-11-18 15:54] VITALS: BP 160/74
[2018-11-18] MEDS: ENOXAPARIN SOD INJ 40 MG/0.4 ML SYR SC SCH (17:25)
[2018-11-18] MEDS ORDERED: LEVAQUIN500 MG PO (18:27)
--- NOTE | 2018-11-18 19:02 | NUR ---
patient was discharged home via wheelchair. patient's family collected his belongings and they took it with them home. Patient in no distress or pain. IV and cath was removed.
--- NOTE | 2018-11-18 20:24 | Progress Note ---
DATE: 11/18/2018 Cardiology Progress Note SUBJECTIVE: The patient feels better. Denies any chest pain or shortness of breath. Mild diarrhea. OBJECTIVE: VITAL SIGNS: Temperature is 96.9, heart rate is 85, respirations are 22, blood pressure is 160/74, and oxygen saturation is 95% on room air. GENERAL: He is an elderly appearing man, lying comfortably in bed, in no apparent distress. CARDIOVASCULAR: Regular rate and rhythm. LUNGS: Clear to auscultation. ABDOMEN: Soft and nontender. EXTREMITIES: Trace edema. MEDICATIONS: Cardiovascular medications reviewed. LABORATORY DATA: Reviewed. Telemetry monitoring revealed ventricular paced rhythm. IMPRESSION: 1. Shortness of breath, improved. 2. Diarrhea. 3. Abdominal pain. 4. Chronic kidney disease. 5. Dementia. 6. Urinary tract infection. 7. Presence of permanent pacemaker. RECOMMENDATIONS: The patient has overall preserved left ventricular systolic function. The patient's blood pressure is elevated and we will resume home antihypertensive regimen with losartan and amlodipine was added. Pacemaker interrogation revealed underlying rhythm with complete heart block with normal pacemaker function. Continue infection and diarrhea treatment per primary team. The patient may be discharged from a cardiovascular standpoint with outpatient followup. DO JEFFERSON Salazar/MODL /[id number]
== END 2018-11-18 19:02 | disposition home or self-care (01) ==
LOC: ER 13:54 → ERHOLD 18:24 → IMCU 20:13
PROVIDERS: ADMIT Internal Medicine; ATTEND Internal Medicine
DX: N39.0 Urinary tract infection, site not specified (principal); K52.9 Noninfective gastroenteritis and colitis, unspecified; N17.9 Acute kidney failure, unspecified; E87.1 Hypo-osmolality and hyponatremia; E86.0 Dehydration; E78.5 Hyperlipidemia, unspecified; K21.9 Gastro-esophageal reflux disease without esophagitis; F03.90 Unspecified dementia, unspecified severity, without behavioral disturbance, psychotic disturbance, mood disturbance, and anxiety; R74.0 Nonspecific elevation of levels of transaminase and lactic acid dehydrogenase [LDH]; E03.9 Hypothyroidism, unspecified; E66.9 Obesity, unspecified; Z68.31 Body mass index [BMI] 31.0-31.9, adult; B95.2 Enterococcus as the cause of diseases classified elsewhere; R14.0 Abdominal distension (gaseous); Z95.0 Presence of cardiac pacemaker; I44.2 Atrioventricular block, complete; I12.9 Hypertensive chronic kidney disease with stage 1 through stage 4 chronic kidney disease, or unspecified chronic kidney disease; N18.9 Chronic kidney disease, unspecified
CPT/HCPCS: 36415 ×4; 71045; 71260; 74177; 80048 ×2; 80053; 80061; 81001; 82550 ×2; 82553 ×2; 83036; 83605; 83690; 83735; 84484 ×2; 85025 ×3; 87040; 87045; 87086; 87186; 87493; 93005; 93306; 99284; G0378 ×4; J0282; J0360; J0692; J0744; J1650 ×3; J1956 ×3; J7030 ×4; Q9967; S0164 ×3

== ENCOUNTER → 2021-01-15 | Outpatient (CLI) | payer MEDICARE ==
[~2021-01-15] MED LIST changes: +ASPIR 8181 MG PO; +CENTRUM SILVER1 EAC3 PO; +LIPO-FLAVONOID1 EACH PO; +LOSARTAN PO; +METOPROLOL TART25 MG PO
== END ==
LOC: RAD 13:57
PROVIDERS: ATTEND Internal Medicine
DX: I50.9 Heart failure, unspecified (principal)
CPT/HCPCS: 93306

== ENCOUNTER → 2021-05-11 | Outpatient (CLI) | payer MEDICARE ==
[~2021-05-11] MED LIST changes: +REGADENOSON 0.4 MG/5 ML SYR IV ONE
== END ==
LOC: NM 09:07
PROVIDERS: ATTEND Internal Medicine
DX: R07.9 Chest pain, unspecified (principal); I73.9 Peripheral vascular disease, unspecified
CPT/HCPCS: 78452; 93017; 93925; A9502; J2785

== ENCOUNTER 2024-07-14 23:23 | Inpatient (IN) | payer MEDICARE ==
[~2024-07-14] VITALS: Ht 175.3 cm; Wt 83.5 kg
[~2024-07-14 23:23] MED LIST changes: +ARICEPT5 MG PO; +AZITHROMYCIN250 MG PO; +CIPRO500 MG PO; +CLOPIDOGREL75 MG PO; +DOCUSATE SODIU100 MG PO; +FLOMAX0.4 MG PO; +FUROSEMIDE40 MG PO; +LEVOTHYROXINE50 MCG PO; +LOSARTAN POTASS50 MG PO; +METOPROLOL SUCC50 MG PO; +ONDANSETRON ODT4 MG PO; +ONDANSETRON ODT4 MG SL; +POTASSIUM CHLO10 ME1 PO; +PREDNISONE20 MG PO; -REGADENOSON 0.4 MG/5 ML SYR IV ONE; +SENOKOT8.6 MG PO; +TOPROL XL50 MG PO; +TRICOR145 MG PO; +VENTOLIN HFA18 GM INH; +XTANDI40 MG PO; +augmentin PO; +centrum silver PO; +tessalon PO; +vitamin d3 PO
[2024-07-15] VITALS (40 sets, daily range): BP systolic 86–147; BP diastolic 46–105; PULSE 65–97; RESP 15–29; TEMP 98–101.1; O2SAT 89–100
[2024-07-15] MEDS ORDERED: ALBUTEROL/IPRATROPIUM 3 ML NEB ONE (00:02)
[2024-07-15] MEDS: ALBUTEROL/IPRATROPIUM 3 ML NEB NEB ONE (00:15)
[2024-07-15] MEDS: METHYLPREDNISOLONE SOD SUCC 125 MG/2ML VIAL IV ONE (00:48)
[2024-07-15 00:53] LABS: BASOPHILS % 0.3 % (0.0-1.0); EOSINOPHILS % 0.3 % (0.0-6.0); HEMATOCRIT 39.1 % (38.2-49.6); HEMOGLOBIN 12.2 g/dL (14.0-18.0); LYMPHOCYTES # (AUTO) 2.3 (1.0-3.2); LYMPHOCYTES % 24.1 % (18.0-39.1); MEAN CORPUSCULAR HEMOGLOBIN 31.9 pg (28-32); MEAN CORPUSCULAR HGB CONC 31.2 g/dL (31-35); MEAN CORPUSCULAR VOLUME 102.1 fL (81-99); MONOCYTES # (AUTO) 1.3 (0.2-0.8); MONOCYTES % 14.1 % (4.4-11.3); NEUTROPHILS # (AUTO) 5.6 (2.1-6.9); NEUTROPHILS % 60.4 % (38.7-80.0); PLATELET COUNT 248 x10e3/uL (140-360); RED BLOOD COUNT 3.83 x10e6/uL (4.3-5.7); RED CELL DISTRIBUTION WIDTH 15.1 % (11.7-14.4); WHITE BLOOD COUNT 9.33 x10e3/uL (4.8-10.8)
[2024-07-15] MEDS ORDERED: ACETAMINOPHEN 1000 MG/100 ML 100 ML IV ONE (00:59)
[2024-07-15] MEDS: ACETAMINOPHEN 1000 MG/100 ML IV STA (01:00)
[2024-07-15 01:07] LABS: ALBUMIN 3.2 g/dL (3.5-5.0); ALBUMIN/GLOBULIN RATIO 0.7 (0.8-2.0); ANION GAP 16.5 mmol/L (8-16); BILIRUBIN,TOTAL 0.5 mg/dL (0.2-1.2); CALCIUM 9.6 mg/dL (8.4-10.2); CREATININE, SERUM 1.59 mg/dL (0.72-1.25); POTASSIUM 4.5 mmol/L (3.5-5.1); TOTAL PROTEIN 8.1 g/dL (6.5-8.1)
[2024-07-15 01:13] LABS: TROPONIN I 0.028 ng/mL (0-0.300)
[2024-07-15 01:21] LABS: B-TYPE NATRIURETIC PEPTIDE2 172.3 pg/mL (0-100)
[2024-07-15] MEDS ORDERED: ACETAMINOPHEN 1000 MG/100 ML IV PRN (01:30)
[2024-07-15] MEDS: SODIUM CHLORIDE 0.9% 1000ML 1,000 ML IV ONE (01:42)
[2024-07-15] MEDS: ALBUTEROL SULF 0.083% NEB SOLN 3 ML NEB NEB SCH (02:16)
[2024-07-15 03:00] LABS: BILIRUBIN,URINE NEGATIVE (NEGATIVE); CLARITY,URINE CLOUDY (CLEAR); COLOR,URINE AMBER (YELLOW); GLUCOSE, URINE NEGATIVE (NEGATIVE); KETONES,URINE NEGATIVE (NEGATIVE); LEUKOCYTE ESTERASE ,URINE NEGATIVE (NEGATIVE); NITRITE,URINE NEGATIVE (NEGATIVE); PH,URINE 5.5 (5 - 7); PROTEIN,URINE DIPSTICK 2+ (NEGATIVE); URINE UROBILINOGEN 0.2 mg/dL (0.2 - 1)
[2024-07-15] MEDS ORDERED: MELATONIN 3 MG TAB PO PRN (03:15)
[2024-07-15] MEDS ORDERED: POLYETHYLENE GLYCOL 3350 17 GM PACK PO PRN (03:15)
[2024-07-15] MEDS ORDERED: GUAIFENESIN/DEXTROMETHORPHAN LIQD 5 ML UDC PO PRN (03:15)
[2024-07-15] MEDS ORDERED: HYDRALAZINE HCL 20 MG/ML VIAL IV PRN (03:15)
[2024-07-15] MEDS ORDERED: MAGNESIUM/ALUMINUM/SIMETHICONE 30 ML UDC PO PRN (03:15)
[2024-07-15] MEDS ORDERED: ONDANSETRON HCL INJ 2MG/ML 2ML 2 MG/ML VIAL IV PRN (03:15)
[2024-07-15 03:24] LABS: BACTERIA,URINE MANY /HPF; EPITHELIAL CELLS,URINE FEW /LPF; RBC,URINE >50 /HPF (0-5); RENAL EPITHELIAL CELLS,URINE FEW; WBC,URINE (MAN) 0-5 /HPF (0-5)
[2024-07-15] MEDS ORDERED: IPRATROPIUM BROMIDE 0.02% 2.5 ML NEB NEB SCH (06:00)
[2024-07-15 07:03] LABS: TROPONIN I 0.026 ng/mL (0-0.300)
[2024-07-15] MEDS: THIAMINE HCL 100 MG TAB PO SCH (08:16)
[2024-07-15] MEDS: DOCUSATE SODIUM 100 MG CAP PO SCH (08:16)
[2024-07-15] MEDS: MULTIVITAMINS/MINERALS TAB PO SCH (08:16)
[2024-07-15] MEDS: FOLIC ACID 1 MG TAB PO SCH (08:16)
[2024-07-15] MEDS: BUDESONIDE 0.5MG/2 ML NEB INH SCH (08:18)
[2024-07-15] MEDS: IPRATROPIUM BROMIDE 0.02% 2.5 ML NEB NEB SCH (08:18)
[2024-07-15] MEDS: ALBUTEROL SULF 0.083% NEB SOLN 3 ML NEB NEB PRN (08:19)
[2024-07-15 10:25] LABS: ABG HCO3 32 mmol/L (22-26); ABG PCO2 58 mmHg (35-45); ABG PH 7.34 (7.35-7.45); ABG PO2 87 mmHg (80-105); ABG TCO2 33
[2024-07-15] MEDS ORDERED: POTASSIUM CHLORIDE 20 MEQ TAB CR PO PRN (12:45)
[2024-07-15] MEDS ORDERED: SIMETHICONE 80 MG CHEW PO PRN (12:45)
[2024-07-15] MEDS ORDERED: ALBUTEROL/IPRATROPIUM 3 ML NEB NEB PRN (12:45)
[2024-07-15] MEDS ORDERED: BENZONATATE 100 MG CAP PO PRN (12:45)
[2024-07-15] MEDS ORDERED: MELATONIN 5 MG TABLET PO PRN (12:45)
[2024-07-15] MEDS ORDERED: DIPHENHYDRAMINE HCL 25 MG CAP PO PRN (12:45)
[2024-07-15] MEDS ORDERED: ACETAMINOPHEN 325 MG TAB PO PRN (12:45)
[2024-07-15] MEDS ORDERED: DOCUSATE SODIUM 100 MG CAP PO PRN (12:45)
[2024-07-15] MEDS ORDERED: DEXTROSE 50% SYRINGE 50 ML IV PRN (12:45)
[2024-07-15 15:07] LABS: TROPONIN I 0.016 ng/mL (0-0.300)
[2024-07-15] MEDS: ENOXAPARIN SOD INJ 40 MG/0.4 ML SYR SC SCH (16:27)
[2024-07-15] MEDS: DONEPEZIL HCL 5 MG TAB PO SCH (20:24)
[2024-07-15] MEDS: ATORVASTATIN 40 MG TAB PO SCH (20:24)
[2024-07-15] MEDS: FENOFIBRATE 145 MG TAB PO SCH (20:24)
[2024-07-15] MEDS: MUPIROCIN 2% OINT 22 GM TUBE TOP SCH (22:00)
[2024-07-16] VITALS (18 sets, daily range): BP systolic 130–153; BP diastolic 56–104; PULSE 82–105; RESP 15–29; TEMP 97.4–98.6; O2SAT 91–100
[2024-07-16] MEDS: LEVOTHYROXINE SODIUM 25 MCG TABLET PO SCH (05:12)
[2024-07-16 06:52] LABS: BASOPHILS % 0.1 % (0.0-1.0); HEMATOCRIT 34.3 % (38.2-49.6); HEMOGLOBIN 10.4 g/dL (14.0-18.0); LYMPHOCYTES # (AUTO) 2.2 (1.0-3.2); LYMPHOCYTES % 28.6 % (18.0-39.1); MEAN CORPUSCULAR HEMOGLOBIN 31.6 pg (28-32); MEAN CORPUSCULAR HGB CONC 30.3 g/dL (31-35); MEAN CORPUSCULAR VOLUME 104.3 fL (81-99); MONOCYTES # (AUTO) 0.8 (0.2-0.8); MONOCYTES % 10.1 % (4.4-11.3); NEUTROPHILS # (AUTO) 4.4 (2.1-6.9); NEUTROPHILS % 57.8 % (38.7-80.0); PLATELET COUNT 257 x10e3/uL (140-360); RED BLOOD COUNT 3.29 x10e6/uL (4.3-5.7); RED CELL DISTRIBUTION WIDTH 15.5 % (11.7-14.4); WHITE BLOOD COUNT 7.66 x10e3/uL (4.8-10.8)
[2024-07-16 07:17] LABS: ALBUMIN 2.5 g/dL (3.5-5.0); ALBUMIN/GLOBULIN RATIO 0.6 (0.8-2.0); ANION GAP 11.3 mmol/L (8-16); BILIRUBIN,TOTAL 0.4 mg/dL (0.2-1.2); CALCIUM 9.1 mg/dL (8.4-10.2); CREATININE, SERUM 0.95 mg/dL (0.72-1.25); POTASSIUM 4.3 mmol/L (3.5-5.1); TOTAL PROTEIN 6.5 g/dL (6.5-8.1)
[2024-07-16 07:37] LABS: THYROID STIMULATING HORMONE 0.745 uIU/mL (0.350-4.940)
[2024-07-16] MEDS: PANTOPRAZOLE SOD 40 MG TABEC PO SCH (08:56)
[2024-07-16] MEDS: DULOXETINE HCL 30 MG DELAYED RELEASE PO SCH (08:57)
[2024-07-16] MEDS: TAMSULOSIN HCL 0.4 MG CAP PO SCH (08:57)
[2024-07-16] MEDS: LIDOCAINE 4% PATCH TP PRN (08:58)
[2024-07-16 10:18] LABS: LYMPHOCYTES % (MANUAL) 26 % (19-48); MONOCYTES % (MANUAL) 9 % (3.4-9.0); NEUTROPHILS % (MANUAL) 62 % (40-74); PLATELET ESTIMATE ADEQUATE; PLATELET MORPHOLOGY COMMENT NORMAL; RBC MORPHOLOGY COMMENT NORMAL; REACTIVE LYMPHOCYTES 3
[2024-07-17] VITALS (24 sets, daily range): BP systolic 141–181; BP diastolic 54–78; PULSE 88–107; RESP 15–25; TEMP 98.1–98.6; O2SAT 82–98
[2024-07-17 06:34] LABS: BASOPHILS # (AUTO) 0.1 (0.0-0.1); BASOPHILS % 0.8 % (0.0-1.0); EOSINOPHILS % 0.5 % (0.0-6.0); HEMATOCRIT 33.3 % (38.2-49.6); HEMOGLOBIN 10.5 g/dL (14.0-18.0); LYMPHOCYTES # (AUTO) 2.1 (1.0-3.2); LYMPHOCYTES % 31.4 % (18.0-39.1); MEAN CORPUSCULAR HEMOGLOBIN 31.7 pg (28-32); MEAN CORPUSCULAR HGB CONC 31.5 g/dL (31-35); MEAN CORPUSCULAR VOLUME 100.6 fL (81-99); MONOCYTES # (AUTO) 0.7 (0.2-0.8); MONOCYTES % 10.3 % (4.4-11.3); NEUTROPHILS # (AUTO) 3.3 (2.1-6.9); NEUTROPHILS % 50.6 % (38.7-80.0); PLATELET COUNT 271 x10e3/uL (140-360); RED BLOOD COUNT 3.31 x10e6/uL (4.3-5.7); RED CELL DISTRIBUTION WIDTH 14.8 % (11.7-14.4); WHITE BLOOD COUNT 6.59 x10e3/uL (4.8-10.8)
[2024-07-17 07:09] LABS: ALBUMIN 2.4 g/dL (3.5-5.0); ALBUMIN/GLOBULIN RATIO 0.6 (0.8-2.0); ANION GAP 11.7 mmol/L (8-16); BILIRUBIN,TOTAL 0.5 mg/dL (0.2-1.2); CALCIUM 8.5 mg/dL (8.4-10.2); CREATININE, SERUM 0.81 mg/dL (0.72-1.25); POTASSIUM 3.7 mmol/L (3.5-5.1); TOTAL PROTEIN 6.4 g/dL (6.5-8.1)
[2024-07-17 11:46] LABS: EOSINOPHILS % (MANUAL) 1 % (0-7); LYMPHOCYTES % (MANUAL) 31 % (19-48); MONOCYTES % (MANUAL) 11 % (3.4-9.0); NEUTROPHILS % (MANUAL) 57 % (40-74)
[2024-07-17 11:47] LABS: PLATELET ESTIMATE ADEQUATE; PLATELET MORPHOLOGY COMMENT NORMAL
[2024-07-17 16:42] LABS: ANION GAP 13.9 mmol/L (8-16); CALCIUM 8.4 mg/dL (8.4-10.2); CREATININE, SERUM 0.77 mg/dL (0.72-1.25); POTASSIUM 3.9 mmol/L (3.5-5.1)
[2024-07-17] MEDS: DEXTROSE 5%/0.9% SOD CHL 1,000 ML IV SCH (19:16)
[2024-07-18] VITALS (26 sets, daily range): BP systolic 114–175; BP diastolic 53–90; PULSE 60–93; RESP 18–29; TEMP 98–98.6; O2SAT 94–100
[2024-07-18] MEDS: DEXMEDETOMIDINE 400MCG/NS100ML 100 ML IV PRN (00:16)
[2024-07-18] MEDS: LOSARTAN POTASSIUM 100 MG TAB PO SCH (15:46)
[2024-07-19] VITALS (16 sets, daily range): BP systolic 126–188; BP diastolic 46–75; PULSE 74–110; RESP 17–30; TEMP 97.9–98.7; O2SAT 95–100
[2024-07-19] MEDS: HYDRALAZINE HCL 20 MG/ML VIAL IV PRN (00:04)
[2024-07-20] VITALS (10 sets, daily range): BP systolic 131–154; BP diastolic 42–74; PULSE 79–110; RESP 18–24; TEMP 97.1–98.6; O2SAT 92–100
[2024-07-20] MEDS ORDERED: METHYLPREDNISOLONE SOD SUCC 125 MG/2ML VIAL IV ONE (08:00)
[2024-07-20 09:15] LABS: BASOPHILS # (AUTO) 0.1 (0.0-0.1); EOSINOPHILS # (AUTO) 0.1 (0.0-0.4); EOSINOPHILS % 1.9 % (0.0-6.0); HEMATOCRIT 34.4 % (38.2-49.6); HEMOGLOBIN 11.2 g/dL (14.0-18.0); LYMPHOCYTES # (AUTO) 1.6 (1.0-3.2); LYMPHOCYTES % 25.7 % (18.0-39.1); MEAN CORPUSCULAR HEMOGLOBIN 31.7 pg (28-32); MEAN CORPUSCULAR HGB CONC 32.6 g/dL (31-35); MEAN CORPUSCULAR VOLUME 97.5 fL (81-99); MONOCYTES # (AUTO) 0.8 (0.2-0.8); MONOCYTES % 12.6 % (4.4-11.3); NEUTROPHILS # (AUTO) 3.1 (2.1-6.9); NEUTROPHILS % 49.8 % (38.7-80.0); PLATELET COUNT 346 x10e3/uL (140-360); RED BLOOD COUNT 3.53 x10e6/uL (4.3-5.7); RED CELL DISTRIBUTION WIDTH 14.1 % (11.7-14.4); WHITE BLOOD COUNT 6.19 x10e3/uL (4.8-10.8)
[2024-07-20 09:40] LABS: ALBUMIN 2.3 g/dL (3.5-5.0); ALBUMIN/GLOBULIN RATIO 0.6 (0.8-2.0); ANION GAP 14.4 mmol/L (8-16); BILIRUBIN,TOTAL 0.6 mg/dL (0.2-1.2); CALCIUM 8.4 mg/dL (8.4-10.2); CREATININE, SERUM 0.7 mg/dL (0.72-1.25); TOTAL PROTEIN 6.1 g/dL (6.5-8.1)
[2024-07-20 09:45] LABS: POTASSIUM 3.4 mmol/L (3.5-5.1)
[2024-07-20 11:08] LABS: BAND NEUTROPHILS % (MANUAL) 2 %; EOSINOPHILS % (MANUAL) 2 % (0-7); LYMPHOCYTES % (MANUAL) 26 % (19-48); METAMYELOCYTES % (MANUAL) 1 % (0-0); MONOCYTES % (MANUAL) 8 % (3.4-9.0); NEUTROPHILS % (MANUAL) 61 % (40-74); PLATELET ESTIMATE ADEQUATE; PLATELET MORPHOLOGY COMMENT NORMAL; RBC MORPHOLOGY COMMENT NORMAL
[2024-07-20] MEDS: ALBUTEROL/IPRATROPIUM 3 ML NEB NEB SCH (13:50)
[2024-07-20] MEDS: METHYLPREDNISOLONE SOD SUCC 125 MG/2ML VIAL IV ONE (15:33)
[2024-07-20] MEDS: ENOXAPARIN SOD INJ 40 MG/0.4 ML SYR SC SCH (17:07)
[2024-07-21] VITALS (11 sets, daily range): BP systolic 14–156; BP diastolic 43–59; PULSE 82–100; RESP 18–24; TEMP 97.4–98.3; O2SAT 92–98
[2024-07-21] MEDS: POTASSIUM CHLORIDE 20 MEQ TAB CR PO STA (10:16)
[2024-07-21] MEDS: FUROSEMIDE INJ 10 MG/ML 4 ML VIAL IV ONE (10:17)
[2024-07-22] VITALS (12 sets, daily range): BP systolic 118–155; BP diastolic 51–81; PULSE 84–104; RESP 18–22; TEMP 97.5–98.2; O2SAT 90–97
[2024-07-22 06:55] LABS: BASOPHILS % 0.2 % (0.0-1.0); EOSINOPHILS # (AUTO) 0.1 (0.0-0.4); EOSINOPHILS % 2.4 % (0.0-6.0); HEMATOCRIT 29.6 % (38.2-49.6); HEMOGLOBIN 9.4 g/dL (14.0-18.0); LYMPHOCYTES # (AUTO) 1.3 (1.0-3.2); LYMPHOCYTES % 26.5 % (18.0-39.1); MEAN CORPUSCULAR HEMOGLOBIN 31.8 pg (28-32); MEAN CORPUSCULAR HGB CONC 31.8 g/dL (31-35); MONOCYTES # (AUTO) 0.5 (0.2-0.8); MONOCYTES % 10.4 % (4.4-11.3); NEUTROPHILS # (AUTO) 2.8 (2.1-6.9); NEUTROPHILS % 56.3 % (38.7-80.0); PLATELET COUNT 367 x10e3/uL (140-360); RED BLOOD COUNT 2.96 x10e6/uL (4.3-5.7); WHITE BLOOD COUNT 5.02 x10e3/uL (4.8-10.8)
[2024-07-22 07:41] LABS: ALBUMIN 2.4 g/dL (3.5-5.0); ALBUMIN/GLOBULIN RATIO 0.6 (0.8-2.0); ANION GAP 12.6 mmol/L (8-16); BILIRUBIN,TOTAL 0.5 mg/dL (0.2-1.2); CALCIUM 8.4 mg/dL (8.4-10.2); CREATININE, SERUM 0.74 mg/dL (0.72-1.25); POTASSIUM 3.6 mmol/L (3.5-5.1); TOTAL PROTEIN 6.5 g/dL (6.5-8.1)
[2024-07-22] MEDS ORDERED: IOPAMIDOL 370 MG/ML 100 ML INFUS..BTL INJ ONE ×2 (13:52→14:14)
[2024-07-23] VITALS (14 sets, daily range): BP systolic 111–143; BP diastolic 42–55; PULSE 80–100; RESP 18–22; TEMP 97.4–98.2; O2SAT 93–100
[2024-07-23] MEDS ORDERED: ONDANSETRON HCL 4 MG ORAL DISINTEGRATING TAB PO PRN (11:30)
[2024-07-24] VITALS (9 sets, daily range): BP systolic 40–174; BP diastolic 45–69; PULSE 51–99; RESP 17–21; TEMP 97.6–98; O2SAT 95–98
[2024-07-24] MEDS ORDERED: METOPROLOL SUCC50 MG PO (13:45)
== END 2024-07-24 15:10 | disposition home health service (06) | DRG 193 ==
LOC: ER 23:26 → ERHOLD 07-15 01:26 → ICU 07-15 02:45 → MED/SURG3 07-19 21:22
PROVIDERS: ADMIT Internal Medicine; ATTEND Internal Medicine
PROC: 5A09357 Assistance with Respiratory Ventilation, Less than 24 Consecutive Hours, Continuous Positive Airway Pressure (ICD-10-PCS; principal; 2024-07-15)
PROC: 5A0935A Assistance with Respiratory Ventilation, Less than 24 Consecutive Hours, High Flow/Velocity Cannula (ICD-10-PCS; 2024-07-15)
PROC: 02HV33Z Insertion of Infusion Device into Superior Vena Cava, Percutaneous Approach (ICD-10-PCS; 2024-07-15)
PROC: B548ZZA Ultrasonography of Superior Vena Cava, Guidance (ICD-10-PCS; 2024-07-15)
PROC: 4A033R1 Measurement of Arterial Saturation, Peripheral, Percutaneous Approach (ICD-10-PCS; 2024-07-15)
PROC: 5A0935A Assistance with Respiratory Ventilation, Less than 24 Consecutive Hours, High Flow/Velocity Cannula (ICD-10-PCS; 2024-07-16)
DX: J12.1 Respiratory syncytial virus pneumonia (principal); G93.41 Metabolic encephalopathy; J96.21 Acute and chronic respiratory failure with hypoxia; N17.9 Acute kidney failure, unspecified; M62.82 Rhabdomyolysis; C78.5 Secondary malignant neoplasm of large intestine and rectum; I13.0 Hypertensive heart and chronic kidney disease with heart failure and stage 1 through stage 4 chronic kidney disease, or unspecified chronic kidney disease; I50.32 Chronic diastolic (congestive) heart failure; N39.0 Urinary tract infection, site not specified; J69.0 Pneumonitis due to inhalation of food and vomit; Z99.81 Dependence on supplemental oxygen; C61 Malignant neoplasm of prostate; N40.1 Benign prostatic hyperplasia with lower urinary tract symptoms; R33.8 Other retention of urine; R31.29 Other microscopic hematuria; N47.1 Phimosis; N47.5 Adhesions of prepuce and glans penis; N18.9 Chronic kidney disease, unspecified; I25.10 Atherosclerotic heart disease of native coronary artery without angina pectoris; Z95.1 Presence of aortocoronary bypass graft; Z95.0 Presence of cardiac pacemaker; E03.9 Hypothyroidism, unspecified; K21.9 Gastro-esophageal reflux disease without esophagitis; G30.9 Alzheimer's disease, unspecified; F02.B0 Dementia in other diseases classified elsewhere, moderate, without behavioral disturbance, psychotic disturbance, mood disturbance, and anxiety; Z11.52 Encounter for screening for COVID-19; Z79.69 Long term (current) use of other immunomodulators and immunosuppressants; Z79.899 Other long term (current) drug therapy
CPT/HCPCS: 36415; 36569; 36600; 71045; 71260; 74230; 76770; 80048; 80053; 81001; 82550; 82607; 82805; 83605; 83735; 83880; 84443; 84484; 85025; 87040; 87400; 87420; 93005; 94640; 94660; 94667; 94668; 94669; 94799; 99252; 99285; J0360; J0696; J1650; J1940; J2919; J3411; J7030; J7042; J7050; Q9967; U0002

== ENCOUNTER → 2024-10-22 | Outpatient (REF) | payer MEDICARE | LOC: EDSTATUS 09:00 → RESP 09:11 | PROVIDERS: ATTEND Nurse Practitioner Family | DX: R09.02 Hypoxemia (principal); R06.02 Shortness of breath; R05.9 Cough, unspecified; J18.9 Pneumonia, unspecified organism; J90 Pleural effusion, not elsewhere classified; B97.4 Respiratory syncytial virus as the cause of diseases classified elsewhere; J43.9 Emphysema, unspecified; E66.3 Overweight; Z87.891 Personal history of nicotine dependence | CPT/HCPCS: 94060; 94727; 94729 ==